=== PATIENT | female | born 1970 | race Caucasian/White ===

== ENCOUNTER 2018-02-14 13:05 | Emergency (ER) | payer OTHER ==
[~2018-02-14] VITALS: Ht 170.2 cm; Wt 71.2 kg
--- OUTSIDE RECORDS SUMMARY | 2018-02-14 13:07 | XMS REPORT | Summary of Care ---
Author Author [facility] Organization [facility] Address Unknown Phone Unavailable Encounter HQ Encntr_alikenan(FIN) [id number] Date(s): 06/20/17 - 06/20/17 [facility] [address] [place] [address] [phone] Encounter Diagnosis Epilepsy, unspecified, not intractable, without status epilepticus (Final) - 06/25/17 Discharge Disposition: Home or Self Care Attending Physician: Alisson Charles MD Vital Signs No data available for this section Problem List No data available for this section Allergies, Adverse Reactions, Alerts Substance Reaction Severity Status penicillins Active atropine Active Effexor Active Celebrex Active Medications No data available for this section Results No data available for this section Immunizations No data available for this section Procedures No data available for this section Social History No data available for this section Assessment and Plan No data available for this section
--- OUTSIDE RECORDS SUMMARY | 2018-02-14 13:07 | XMS REPORT ---
Author Author [facility] Address Unknown Phone Unavailable Care Team Providers Care Custom Designer Name Role Phone Kristian Reynoso Unavailable Unavailable Problems This patient has no known problems. Allergies, Adverse Reactions, Alerts This patient has no known allergies or adverse reactions. Medications This patient has no known medications. Encounters Start Date/Time End Date/Time Encounter Type Admission Type Attending [facility] Care Department Encounter ID 2017-08-30 09:59:00 2017-08-30 09:59:00 Outpatient Toni Reynoso [id number]
--- OUTSIDE RECORDS SUMMARY | 2018-02-14 13:07 | XMS REPORT | Summary of Care ---
Author Author Corinne Woodard Organization Unknown Address [facility] Phone Unavailable Care Team Providers Care Software Engineering Associate Manager Name Role Phone Corinne Woodard Unavailable Unavailable SUE ROBISON D.O. Unavailable Unavailable ELIF RABAGO, NIKO LOYOLA Unavailable Unavailable Unavailable Unavailable Functional Status Name Dates Details Functional status health issues are not documented Status: Name Dates Details Cognitive status health issues are not documented Status: Problems Name Dates Details Depression, unspecified depression type (311, F32.9) Status: Active Lipid screening (V77.91, Z13.220) Status: Active Migraine (346.90, G43.909) Status: Active Lumbago (724.2, M54.5) Status: Active Debility (799.3, R53.81) Status: Active Fall (E888.9, W19.XXXA) Status: Active Anxiety (300.00, F41.9) Status: Active Memory loss (780.93, R41.3) Status: Active Seizure disorder (345.90, G40.909) Status: Active Rib pain (786.50, R07.81) Status: Active Medications Name Dates Details Topiramate 100 MG Oral Tablet TAKE 1 TABLET TWICE DAILY. * Start : 06-Jun-2017 Active Amitriptyline HCl - 100 MG Oral Tablet TAKE 3 TABLET AT BEDTIME. * Refills: 0 * Start : 06-Jun-2017 Active Hydrocodone-Acetaminophen 10-325 MG Oral Tablet TAKE 1 TABLET EVERY 4 HOURS NEEDED. * Refills: 0 * Start : 06-Jun-2017 Active ClonazePAM 0.5 MG Oral Tablet 1 TABLET ONCE A DAILY NEEDED FOR ANXIETY * Quantity: 30 Refills: 2 YEH D.Shari.SUE * Start : 06-Jun-2017 Active Allergies and Adverse Reactions Name Dates Details Atropine POWD (Allergy) Status: Active Effexor XR CP24 (Allergy) Status: Active Penicillins (Allergy) Status: Active Past Medical History Name Dates Details History of anxiety (V11.8, Z86.59) Status: Resolved History of migraine (V12.49, Z86.69) Status: Resolved History of seizure (V12.49, Z87.898) Status: Resolved Procedures Procedure Dates Details History of Appendectomy Completed History of Cholecystectomy Completed History of section Completed History of Skin abscess incision and drainage Completed History of Biopsy Completed Immunization Name Dates Details Immunizations not documented Family History Name Dates Details Family history of diabetes mellitus (V18.0, Z83.3) Status: Active Family history of hypertension (V17.49, Z82.49) Status: Active Family history of asthma (V17.5, Z82.5) Status: Active Name Dates Details Family history of lung cancer (V16.1, Z80.1) Status: Active Family history of diabetes mellitus (V18.0, Z83.3) Status: Active Family history of hypertension (V17.49, Z82.49) Status: Active Social History Name Dates Details - Status: Name Dates Details Never smoker Vital Signs Date Test Result Details [id number] Physical Findings 5 Status: Comments: PHQ-9 Adult Depression Screening [id number] BP Systolic 108 mm[Hg] Status: Comments: Location: LUE; Position: Sitting BP Diastolic 75 mm[Hg] Status: Comments: Location: LUE; Position: Sitting Height 64 in Status: Weight 154 lb Status: Body Mass Index Calculated 26.43 kg/m2 Status: Body Surface Area Calculated 1.75 m2 Status: Temperature 100.5 f Status: Comments: Method: Temporal Respiration Rate 16 /min Status: Heart Rate 111 /min Status: [id number]-[id number] BP Systolic 129 mm[Hg] Status: BP Diastolic 87 mm[Hg] Status: Height 64 in Status: Weight 153 lb Status: Body Mass Index Calculated 26.26 kg/m2 Status: Body Surface Area Calculated 1.75 m2 Status: Heart Rate 101 /min Status: Results Date Description Value Details Results not documented Plan of Care Name Dates Details Planned Observations Planned Goals not documented Instructions Name Dates Details Instructions not documented Encounters Appointment; SHANNON HORTON P.A. Encounter Diagnosis: Problem not documented On: 06-Jun-2017 11:00 Appointment; ABBY MENDES M.D. Encounter Diagnosis: Problem not documented On: 25-Nov-2017 9:00 Appointment; SUE ROBISON D.O. Encounter Diagnosis: Problem not documented On: 09-Dec-2017 15:00
--- OUTSIDE RECORDS SUMMARY | 2018-02-14 13:07 | XMS REPORT | Continuity of Care Document ---
Author Author [facility] Address Unknown Phone Unavailable Problems Problem Status Onset Date Classification Date Reported Comments Source DX: R41.3=OTHER AMNESIA Active 08/20/2017 [place] Epilepsy, unspecified, not intractable, without status epilepticus 06/26/2017 09/26/2017 [facility] G40.909 - EPILEPSY, UNSP, NOT INTRACTABL Active 06/14/2017 [facility] Medications Medication Details Route Status Patient Instructions Ordering Provider Order Date Source Allergies, Adverse Reactions, Alerts Substance Category Reaction Severity Reaction type Status Date Reported Comments Source penicillins Assertion Drug allergy Active [facility] atropine Assertion Drug allergy Active [facility] Effexor Assertion Drug allergy Active [facility] Celebrex Assertion Drug allergy Active [facility] Immunizations Immunization Date Given Site Status Last Updated Comments Source Results Order Name Results Value Reference Range Date Interpretation Comments Source PET CT Dementia PET CT Dementia Addendum: Case reviewed with referring physician Dr. Charles on 09/10/2017 at 1345 hours. There are areas of mild decrease in activity in the brain but these changes are nonspecific and not suggestive of Alzheimer's dementia or frontotemporal dementia. PET/CT SCAN: TECHNIQUE: 8.4 mCi of FDG were administered intravenously and dedicated 3 D SPECT images of the brain were performed in axial sagittal and coronal projections. Corresponding CT scan is also available for review. CLINICAL HISTORY: R41.3 Other amnesia - DLP=77.03 mgy*cm, CTDIvol=4.54 mGy. Blood glucose 91. COMPARISON: MRI brain 06/20/2017 FINDINGS: There is no significant decrease in metabolic activity in the temporal lobes or parietal lobes bilaterally on visual survey. Activity in the posterior cingulate gyrus is preserved bilaterally. Activity in the occipital lobes, deep sage nuclei and other subcortical structures is within normal limits. Quantification of metabolic activity was performed using single brain atlas and [facility] Probabilistic atlas. Z scores of +1.65 and -1.65 are statistically significant. Z score Posterior cingulate gyrus -0.22 Z score Precuneus -0.19 Z score Temporal lobe 1.33 Z score Parietal lobe -0.12 Z score Frontal lobe -1.26 Z score Occipital lobe 0.12 The Z scores are concordant with the visual survey and reveals no significant decrease in metabolic activity in the temporal or parietal lobes to suggest Alzheimer dementia. IMPRESSION: No PET/CT evidence to suggest Alzheimer's dementia. 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 FINDINGS: BRAIN PARENCHYMA: There is no hemorrhage, mass lesion, extra axial collection, cerebral edema, or mass effect. Diffusion sequences are normal. Brain volume is age-appropriate. There are very mild, periventricular matter signal abnormalities within normal limits for age. The hippocampal formations have normal symmetric size and signal.The cerebellar tonsils are above foramen magnum. The pituitary gland is age-appropriate. There is no abnormal enhancement. CEREBELLOPONTINE REGIONS AND SKULL BASE: The cerebellopontine angles appear unremarkable. No skull base abnormality is seen. VENTRICLES/SULCI/CISTERNS: The ventricles are normal in size and configuration. The basal cisterns are patent. VISUALIZED VESSELS: Major intracranial flow voids are preserved. ORBITS, VISUALIZED PARANASAL SINUSES AND MASTOIDS: Paranasal sinuses are clear. The mastoid air cells are clear. No orbital pathology is seen. IMPRESSION: Stable appearance of the brain without acute findings or discrete seizure focus identified 06/20/2017 - - Read by: Roderick Waters MD Dictated Date/time: 06/20/17 13:45 Electronically Signed by: Roderick Waters MD 06/20/17 15:00 FINAL REPORT [facility] Vital Signs Vital Sign Value Date Comments Source Encounters Location Location Details Encounter Type Encounter Number Reason For Visit Attending Provider ADM Date DC Date Status Source [facility] [place] [facility] [id number] Alisson Charles 06/20/2017 06/21/2017 [facility] [id number] Alisson Charles 08/29/2017 08/30/2017 [facility] Procedures Procedure Code Date Perfomer Comments Source
--- OUTSIDE RECORDS SUMMARY | 2018-02-14 13:07 | XMS REPORT | Summary of Care ---
Author Author [facility] Organization [facility] Address Unknown Phone Unavailable Encounter HQ Encntr_alias(FIN) [id number] Date(s): 08/29/17 - 08/29/17 [facility] [address] [place] [address]- Discharge Disposition: Home or Self Care Attending Physician: Alisson Charles MD Referring Physician: Alisson Charles MD Vital Signs No [...]
--- NOTE | 2018-02-14 14:13 | Diagnostic Imaging Report ---
Exam: Left shoulder 2 views History: Seizure and fall Comparison: None. Findings: No acute, displaced fracture or dislocation. Humeral head projects appropriately adjacent to the glenoid. Acromioclavicular and glenohumeral joint spaces are well-maintained. Soft tissues are unremarkable. Partially visualized left hemithorax is well aerated. Impression: No acute osseous abnormality. Signed by: Dr. Toni Sr M.D. on 02/14/2018 2:10 PM
--- NOTE | 2018-02-14 14:15 | Diagnostic Imaging Report ---
History: Seizure, hit the head Comparison studies:None Technique: Axial images were obtained from the brain and cervical spine. Coronal and sagittal images reconstructed from the axial data. Intravenous contrast: None Dose modulation, iterative reconstruction, and/or weight based adjustment of the mA/kV was utilized to reduce the radiation dose to as low as reasonably achievable. Findings: Head CT: Scalp/skull: Left parietal and temporal scalp hematoma without underlying fracture. No fractures, blastic or lytic lesions. Brain sulci: Mildly prominent at the frontal (convexities. Ventricles: Normal in size and configuration. No hydrocephalus. Extra-axial spaces: No masses. No fluid collections. Parenchyma: No abnormal densities. No masses, hemorrhage, acute or chronic cortical vascular insults. Sellar/suprasellar region: No abnormalities. Craniocervical junction: Patent foramen magnum. No Chiari one malformation. Cervical spine CT: Fractures: None. Soft tissues: No gross abnormalities. Atlantoaxial articulation: Mild degenerative changes without acute abnormality. Alignment: Normal lordosis. No scoliosis. Cervicomedullary junction: No abnormalities. Patent foramen magnum. Vertebrae: No infection or neoplasm. Degenerative changes: Patent canal and foramina. Incidental findings: None. Impression: Head CT: 1. No acute intracranial abnormality. 2. Left parietal and temporal scalp hematoma without underlying fracture. 3. Bifrontal and parietal mild volume loss more than expected for patient's age.. Cervical spine CT: 1. No acute abnormalities. 2. Cannot exclude ligament, spinal cord and or vascular abnormalities on the basis of this examination. Signed by: DR Amauri Rivera M.D. on 02/14/2018 2:12 PM
== END 2018-02-14 16:22 | disposition home or self-care (01) ==
LOC: ER 13:05
DX: G40.409 Other generalized epilepsy and epileptic syndromes, not intractable, without status epilepticus (principal); S00.83XA Contusion of other part of head, initial encounter; S40.012A Contusion of left shoulder, initial encounter; M25.512 Pain in left shoulder
CPT/HCPCS: 70450; 72125; 99283

== ENCOUNTER 2021-09-08 09:29 | Emergency (ER) | payer MEDICARE, OTHER ==
[~2021-09-08] VITALS: Ht 162.6 cm; Wt 59.4 kg
[2021-09-08] MEDS ORDERED: SODIUM CHLORIDE 0.9% 1000ML 1,000 ML IV STA (09:39)
[2021-09-08 09:49] LABS: BASOPHILS % 0.2 % (0.0-1.0); EOSINOPHILS # (AUTO) 0.1 (0.0-0.4); EOSINOPHILS % 1.9 % (0.0-6.0); HEMATOCRIT 39.3 % (34.2-44.1); HEMOGLOBIN 12.9 g/dL (12.0-16.0); LYMPHOCYTES # (AUTO) 1.2 (1.0-3.2); LYMPHOCYTES % 22.8 % (18.0-39.1); MEAN CORPUSCULAR HEMOGLOBIN 32.7 pg (28-32); MEAN CORPUSCULAR HGB CONC 32.8 g/dL (31-35); MEAN CORPUSCULAR VOLUME 99.5 fL (81-99); MONOCYTES # (AUTO) 0.3 (0.2-0.8); MONOCYTES % 6.3 % (4.4-11.3); NEUTROPHILS # (AUTO) 3.6 (2.1-6.9); NEUTROPHILS % 68.6 % (38.7-80.0); PLATELET COUNT 245 x10e3/uL (140-360); RED BLOOD COUNT 3.95 x10e6/uL (3.6-5.1); RED CELL DISTRIBUTION WIDTH 11.9 % (11.7-14.4)
[2021-09-08 09:57] LABS: INR 0.87; PROTHROMBIN TIME 12.6 seconds (11.9-14.5)
[2021-09-08 09:58] LABS: PARTIAL THROMBOPLASTIN TIME 25.6 seconds (23.8-35.5)
[2021-09-08] MEDS ORDERED: LEVETIRACETAM 500MG/5ML VIAL 1,000 MG in SODIUM CHLORIDE 0.9% 100 ML IV ONE (10:00)
[2021-09-08 10:05] LABS: ALANINE AMINOTRANSFERASE 13 IU/L (0-55); ALBUMIN 4.1 g/dL (3.5-5.0); ALBUMIN/GLOBULIN RATIO 1.2 (0.8-2.0); ALKALINE PHOSPHATASE 110 IU/L (40-150); ANION GAP 15.8 mmol/L (8-16); BLOOD UREA NITROGEN 9 mg/dL (7-26); BUN/CREATININE RATIO 9 (6-25); CARBON DIOXIDE 22 mmol/L (22-29); CHLORIDE 100 mmol/L (98-107); CREATINE KINASE 38 IU/L (29-168); EST GLOMERULAR FILTRATION RATE 58 ML/MIN (60-); GLUCOSE 90 mg/dL (74-118); POTASSIUM 3.8 mmol/L (3.5-5.1); SODIUM 134 mmol/L (136-145)
[2021-09-08 12:02] VITALS: BP 115/82
== END 2021-09-08 12:04 | disposition home or self-care (01) ==
LOC: ER 09:38
DX: G40.909 Epilepsy, unspecified, not intractable, without status epilepticus (principal); F41.9 Anxiety disorder, unspecified
CPT/HCPCS: 36415; 70450; 80053; 82550; 82553; 84484; 85025; 85610; 85730; 99284; J1953; J7030; J7050